=== PATIENT | male | born 1950 | race Caucasian/White ===

== ENCOUNTER → 2016-12-14 | Outpatient (CLI) | payer BC ==
[~2016-12-14] MED LIST: ASPI-587 PO; BENA10TA2 PO; BNZ40T PO; CARV12.52 PO; CARV12.53 PO; CARV25TA PO; CEFU500T PO; CHOL100011 PO; CHOL20002 PO; DIGO125T PO; FURO40TA4 PO; LOVA40TA2 PO; MULT-974 PO; PANT40TA2 PO; PNT40TEC PO; POTA-51 PO; POTA20PA11 PO; PRAS10TA6 PO; SERT100T8 PO; SPIR25TA PO
== END ==
LOC: CARD 13:02
PROVIDERS: ATTEND Physician Assistant
DX: I11.0 Hypertensive heart disease with heart failure (principal); I50.22 Chronic systolic (congestive) heart failure; I25.5 Ischemic cardiomyopathy; E78.2 Mixed hyperlipidemia
CPT/HCPCS: 93306

== ENCOUNTER → 2018-01-27 | Outpatient (CLI) | payer BC ==
[~2018-01-27] MED LIST changes: -BENA10TA2 PO; +BENA10TA7 PO
--- NOTE | 2018-01-27 15:56 | Diagnostic Imaging Report ---
INDICATION: Prostate cancer. TECHNIQUE: Patient was administered 25.8 mCi technetium 99m MDP intravenously and whole-body imaging was performed after a three-hour delay. COMPARISON: No prior bone scans are available for comparison. FINDINGS: There is normal uptake of activity by the axial and appendicular skeleton. There is uptake by both kidneys with excretion into the urinary bladder. Mild uptake involving the medial left knee is seen, likely owing to degenerative change. No suspicious foci of tracer accumulation is identified to suggest osseous metastatic disease. IMPRESSION: No scintigraphic evidence of osseous metastatic disease. Dictated by: Dictated on workstation # [id number]
== END ==
LOC: CARD 11:52
PROVIDERS: ATTEND Nurse Practitioner Family
DX: C61 Malignant neoplasm of prostate (principal)
CPT/HCPCS: 78306

== ENCOUNTER → 2018-02-07 | Outpatient (CLI) | payer BC | LOC: CARD 12:54 | PROVIDERS: ATTEND Internal Medicine Cardiovascular Disease | DX: I44.0 Atrioventricular block, first degree (principal); I50.22 Chronic systolic (congestive) heart failure; I25.10 Atherosclerotic heart disease of native coronary artery without angina pectoris; Z72.0 Tobacco use; I34.0 Nonrheumatic mitral (valve) insufficiency | CPT/HCPCS: 93306 ==

== ENCOUNTER 2018-02-28 05:39 | Outpatient (CLI) | payer BC ==
[~2018-02-28] VITALS: Ht 177.8 cm; Wt 93.4 kg
[2018-02-28] MEDS ORDERED: SERT100T8 PO (13:28)
[2018-02-28] MEDS ORDERED: CARV6.252 PO (13:28)
[2018-02-28] MEDS ORDERED: FURO40TA4 PO (13:28)
[2018-02-28] MEDS ORDERED: ROSU20TA31 PO (13:28)
[2018-02-28] MEDS ORDERED: TICA60TA PO (13:28)
[2018-02-28] MEDS ORDERED: ASPI-999 PO (13:28)
[2018-02-28] MEDS ORDERED: CHOL100045 PO (13:28)
[2018-02-28] MEDS ORDERED: SACU1TAB PO (13:28)
[2018-02-28] MEDS ORDERED: MULT-35 PO (13:28)
== END 2018-02-28 15:26 | disposition home or self-care (01) ==
LOC: PREOP 05:39
PROVIDERS: ATTEND Radiology Radiation Oncology
DX: Z01.818 Encounter for other preprocedural examination (principal)

== ENCOUNTER 2018-03-05 10:44 | Day surgery (SDC) | payer BC ==
[~2018-03-05] VITALS: Ht 177.8 cm; Wt 93.4 kg
[~2018-03-05 10:44] MED LIST changes: +ASPI-999 PO; +CARV6.252 PO; +CHOL100045 PO; +MULT-35 PO; +ROSU20TA31 PO; +SACU1TAB PO; +TICA60TA PO
--- NOTE | 2018-03-05 10:59 | Progress Note-Pre Operative ---
Pre-Operative Progress Note H&P Reviewed The H&P was reviewed, patient examined and no changes noted. Date Seen by Provider: Mar 05, 2018 Time Seen by Provider: 10:58 Date H&P Reviewed: Mar 05, 2018 Time H&P Reviewed: 10:59 Pre-Operative Diagnosis: Prostate cancer cT1c, PSA 10.07, [place] 7 (4+3) GAURAV NUNES MD Mar 05, 2018 10:59
[2018-03-05 11:00] VITALS: BP 137/86
--- NOTE | 2018-03-05 11:03 | Discharge Inst-Simple/Standard ---
Discharge Inst-Standard Discharge Medications New, Converted or Re-Newed RX: RX Given to Pt/Family Patient Instructions/Follow Up Plan of Care/Instructions/FU: 1)Follow up appointment scheduled with Dr. Allred for 04/04/18 at 10:00 a.m. 2)Follow up at [facility] for post implant scan on 04/02/18 at 1:00 p.m. Activity as Tolerated: Yes Discharge Diet: No Restrictions Other Inst to Patient Please instruct patient on anglin catheter removal - either Wednesday 03/07 or Saturday 03/10 in morning - date per Dr. Allred. GAURAV NUNES MD Mar 05, 2018 11:03
[2018-03-05] MEDS ORDERED: CIPR-226 PO (11:06)
[2018-03-05] MEDS ORDERED: ACET1TAB43 PO (11:06)
--- OUTSIDE RECORDS SUMMARY | 2018-03-05 11:07 | XMS REPORT | Continuity of Care Document ---
Author Author [facility] Organization [facility] Address Unknown Phone Unavailable Allergies Active Description Code Type Severity Reaction Onset Reported/Identified Relationship to Patient Clinical Status Yes No Known Drug Allergies [id number] Drug Allergy Unknown N/A 02/24/2010 Yes clopidogrel [id number] Drug Allergy Unknown N/A 04/13/2014 Yes PROLANTA PROLANTA Unknown N/A 04/13/2014 Yes CONTAST DYE CONTAST DYE Unknown N/A 12/15/2014 Yes ticagrelor [id number] Drug Allergy Unknown N/A 12/15/2014 Yes Iodinated Contrast Media - IV Dye [id number] Drug Allergy Unknown N/A 02/05 Yes Iodinated Contrast- Oral and IV Dye [id number] Drug Allergy Unknown N/A Yes clopidogrel [id number] Drug Allergy Mild BREATHING DIFFI 02/28/2018 Medications There is no data. Problems Date Dx Coded Attending Type Code Diagnosis Diagnosed By 02/24/2010 Ot V76.51 04/13/2014 MARTHA MCKINNEY MD Ot 211.3 BENIGN NEOPLASM LG BOWEL 04/13/2014 MARTHA MCKINNEY MD Ot 427.31 ATRIAL FIBRILLATION 04/13/2014 MARTHA MCKINNEY MD Ot 455.0 INT HEMORRHOID W/O COMPL 04/13/2014 MARTHA MCKINNEY MD Ot 535.40 OTH SPECIFIED GASTRITIS,W/O MENTION OF H 04/13/2014 MARTHA MCKINNEY MD Ot 562.10 DIVERTICULOSIS COLON (W/O MENT OF HEMORR 04/13/2014 MARTHA MCKINNEY MD Ot V16.0 FAMILY HX-GI MALIGNANCY 04/13/2014 MARTHA MCKINNEY MD Ot V45.89 POSTSURGICAL STATES NEC 04/13/2014 MARTHA MCKINNEY MD Ot V58.66 LONG-TERM (CURRENT) USE OF ASPIRIN 04/13/2014 MARTHA MCKINNEY MD Ot V76.51 SCREEN MAL NEOP-COLON 07/26/2014 JOSE RAFAEL HARRIS DO Ot 786.09 07/26/2014 MARTHA MCKINNEY MD Ot V72.84 09/03/2014 LEANNE VAZQUEZ MD Ot 305.1 09/03/2014 LEANNE VAZQUEZ MD Ot 401.9 09/03/2014 LEANNE VAZQUEZ MD Ot 410.90 09/03/2014 LEANNE VAZQUEZ MD Ot 428.0 09/24/2014 JOSE RAFAEL HARRIS DO Ot 786.09 09/24/2014 MARTHA MCKINNEY MD Ot V72.84 09/24/2014 LEANNE VAZQUEZ MD Ot 305.1 09/24/2014 LEANNE VAZQUEZ MD Ot 401.9 09/24/2014 LEANNE VAZQUEZ MD Ot 410.90 09/24/2014 LEANNE VAZQUEZ MD Ot 428.0 09/24/2014 JOSE RAFAEL HARRIS DO Ot 786.09 09/24/2014 MARTHA MCKINNEY MD Ot V72.84 09/24/2014 LEANNE VAZQUEZ MD Ot 305.1 09/24/2014 LEANNE VAZQUEZ MD Ot 401.9 09/24/2014 LEANNE VAZQUEZ MD Ot 410.90 09/24/2014 LEANNE VAQZUEZ MD Ot 428.0 10/08/2014 DELPHINE GAGE Ot 414.00 10/08/2014 DELPHINE GAGE Ot 414.8 10/08/2014 DELPHINE GAGE Ot 426.11 10/08/2014 DELPHINE GAGE Ot 428.0 10/08/2014 DELPHINE GAGE Ot V15.82 12/16/2014 LEANNE VAZQUEZ MD Ot 272.4 HYPERLIPIDEMIA NEC/NOS 12/16/2014 LEANNE VAZQUEZ MD Ot 305.1 TOBACCO USE DISORDER 12/16/2014 LEANNE VAZQUEZ MD Ot 401.9 HYPERTENSION NOS 12/16/2014 LEANNE VAZQUEZ MD Ot 412 OLD MYOCARDIAL INFARCT 12/16/2014 LEANNE VAZQUEZ MD Ot 414.01 CORONARY ATHEROSCLEROSIS OF [place] CORON 12/16/2014 LEANNE VAZQUEZ MD Ot 414.8 CHR ISCHEMIC HRT DIS NEC 12/16/2014 LEANNE VAZQUEZ MD Ot 428.0 CONGESTIVE HEART FAILURE NOS 12/16/2014 LEANNE VAZQUEZ MD Ot 428.22 CHRONIC SYSTOLIC HRT FAILURE 12/16/2014 LEANNE VAZQUEZ MD Ot 530.81 ESOPHAGEAL REFLUX 12/16/2014 LEANNE VAZQUEZ MD Ot V45.82 PERCUTANEOUS TRANSLUM CORON ANGIOPLASTY 12/16/2014 LEANNE VAZQUEZ MD Ot V58.69 OT MED,LT,CURRENT USE 12/16/2014 LEANNE VAZQUEZ MD Ot 305.1 12/16/2014 LEANNE VAZQUEZ MD Ot 401.9 12/16/2014 LEANNE VAZQUEZ MD Ot 414.00 12/16/2014 LEANNE VAZQUEZ MD Ot 428.0 10/19/2015 LEANNE VAZQUEZ MD Ot I10 ESSENTIAL (PRIMARY) HYPERTENSION 10/19/2015 LEANNE VAZQUEZ MD Ot I25.10 ATHSCL HEART DISEASE OF [place] CORONARY 10/19/2015 LEANNE VAZQUEZ MD Ot I25.5 ISCHEMIC CARDIOMYOPATHY 10/19/2015 LEANNE VAZQUEZ MD Ot I44.0 ATRIOVENTRICULAR BLOCK, FIRST DEGREE 10/21/2015 LEANNE VAZQUEZ MD Ot I10 ESSENTIAL (PRIMARY) HYPERTENSION 10/21/2015 LEANNE VAZQUEZ MD Ot I25.10 ATHSCL HEART DISEASE OF [place] CORONARY 10/21/2015 LEANNE VAZQUEZ MD Ot I25.5 ISCHEMIC CARDIOMYOPATHY 10/21/2015 LEANNE VAZQUEZ MD Ot I44.0 ATRIOVENTRICULAR BLOCK, FIRST DEGREE 11/07/2015 LEANNE VAZUQEZ MD Ot I10 ESSENTIAL (PRIMARY) HYPERTENSION 11/07/2015 LEANNE VAZQUEZ MD Ot I25.10 ATHSCL HEART DISEASE OF [place] CORONARY 11/07/2015 LEANNE VAZQUEZ MD Ot I25.5 ISCHEMIC CARDIOMYOPATHY 11/07/2015 LEANNE VAZQUEZ MD Ot I44.0 ATRIOVENTRICULAR BLOCK, FIRST DEGREE 01/27/2016 JOSE RAFAEL HARRIS DO Ot 786.09 RESPIRATORY ABNORM NEC 01/27/2016 FAYE RINALDI, MARTHA Enriquez Ot V72.84 EXAM PRE-OPERATIVE NOS 01/27/2016 LEANNE VAZQUEZ MD Ot 305.1 TOBACCO USE DISORDER 01/27/2016 LEANNE VAZQUEZ MD Ot 401.9 HYPERTENSION NOS 01/27/2016 LEANNE VAZQUEZ MD Ot 410.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,UNSPEC SITE, EPIS 01/27/2016 LEANNE VAZQUEZ MD Ot 428.0 CONGESTIVE HEART FAILURE NOS 01/27/2016 DELPHINE GAGE Ot 414.00 CORON ATHEROSCLER NOS TYPE VESSEL, NATIV 01/27/2016 DELPHINE AGGE Ot 414.8 CHR ISCHEMIC HRT DIS NEC 01/27/2016 DELPHINE GAGE Ot 426.11 ATRIOVENT BLOCK-1ST DEGR 01/27/2016 DELPHINE GAGE Ot 428.0 CONGESTIVE HEART FAILURE NOS 01/27/2016 DELPHINE GAGE Ot V15.82 HISTORY OF TOBACCO USE 01/27/2016 LEANNE VAZQUEZ MD Ot 305.1 TOBACCO USE DISORDER 01/27/2016 LEANNE VAZQUEZ MD Ot 401.9 HYPERTENSION NOS 01/27/2016 LEANNE VAZQUEZ MD Ot 414.00 CORON ATHEROSCLER NOS TYPE VESSEL, NATIV 01/27/2016 LEANNE VAZQUEZ MD Ot 428.0 CONGESTIVE HEART FAILURE NOS 01/27/2016 LEANNE VAZQUEZ MD Ot I10 ESSENTIAL (PRIMARY) HYPERTENSION 01/27/2016 LEANNE VAZQUEZ MD Ot I25.10 ATHSCL HEART DISEASE OF [place] CORONARY 01/27/2016 LEANNE VAZQUEZ MD Ot I25.5 ISCHEMIC CARDIOMYOPATHY 01/27/2016 LEANNE VAZQUEZ MD Ot I44.0 ATRIOVENTRICULAR BLOCK, FIRST DEGREE 02/07/2016 LEANNE VAZQUEZ MD Ot I10 ESSENTIAL (PRIMARY) HYPERTENSION 02/07/2016 LEANNE VAZQUZE MD Ot I25.10 ATHSCL HEART DISEASE OF [place] CORONARY 02/07/2016 LEANNE VAZQUEZ MD Ot I25.5 ISCHEMIC CARDIOMYOPATHY 02/07/2016 LEANNE VAZQUEZ MD Ot I50.22 CHRONIC SYSTOLIC (CONGESTIVE) HEART FAIL 02/07/2016 LEANNE VAZQUEZ MD Ot Z72.0 TOBACCO USE 02/08/2016 LEANNE VAZQUEZ MD Ot I10 ESSENTIAL (PRIMARY) HYPERTENSION 02/08/2016 LEANNE VAZQUEZ MD Ot I25.10 ATHSCL HEART DISEASE OF [place] CORONARY 02/08/2016 LEANNE VAZQUEZ MD Ot I25.5 ISCHEMIC CARDIOMYOPATHY 02/08/2016 LEANNE VAZQUEZ MD Ot I50.22 CHRONIC SYSTOLIC (CONGESTIVE) HEART FAIL 02/08/2016 LEANNE VAZQUEZ MD Ot Z72.0 TOBACCO USE 04/06/2016 DELPHINE GAGE Ot I25.10 ATHSCL HEART DISEASE OF [place] CORONARY 04/06/2016 DELPHINE GAGE Ot I50.22 CHRONIC SYSTOLIC (CONGESTIVE) HEART FAIL 04/19/2016 DELPHINE GAGE Ot I25.10 ATHSCL HEART DISEASE OF [place] CORONARY 04/19/2016 DELPHINE GAGE Ot I50.22 CHRONIC SYSTOLIC (CONGESTIVE) HEART FAIL 12/07/2016 JOSE RAFAEL HARRIS DO Ot 786.09 RESPIRATORY ABNORM NEC 12/07/2016 FAYE RINALDI, MARTHA Enriquez Ot V72.84 EXAM PRE-OPERATIVE NOS 12/07/2016 LEANNE VAZQUEZ MD Ot 305.1 TOBACCO USE DISORDER 12/07/2016 LEANNE VAZQUEZ MD Ot 401.9 HYPERTENSION NOS 12/07/2016 LEANNE VAZQUEZ MD Ot 410.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,UNSPEC SITE, EPIS 12/07/2016 LEANNE VAZQUEZ MD Ot 428.0 CONGESTIVE HEART FAILURE NOS 12/07/2016 DELPHINE GAGE Ot 414.00 CORON ATHEROSCLER NOS TYPE VESSEL, NATIV 12/07/2016 DELPHINE GAGE Ot 414.8 CHR ISCHEMIC HRT DIS NEC 12/07/2016 DELPHINE GAGE Ot 426.11 ATRIOVENT BLOCK-1ST DEGR 12/07/2016 DELPHINE GAGE Ot 428.0 CONGESTIVE HEART FAILURE NOS 12/07/2016 DELPHINE GAGE Ot V15.82 HISTORY OF TOBACCO USE 12/07/2016 LEANNE VAZQUEZ MD Ot 305.1 TOBACCO USE DISORDER 12/07/2016 LEANNE VAZQUEZ MD Ot 401.9 HYPERTENSION NOS 12/07/2016 LEANNE VAZQUEZ MD Ot 414.00 CORON ATHEROSCLER NOS TYPE VESSEL, NATIV 12/07/2016 LEANNE VAZQUEZ MD Ot 428.0 CONGESTIVE HEART FAILURE NOS 12/07/2016 LEANNE VAZQUEZ MD Ot I10 ESSENTIAL (PRIMARY) HYPERTENSION 12/07/2016 LEANNE VAZQUEZ MD Ot I25.10 ATHSCL HEART DISEASE OF [place] CORONARY 12/07/2016 LEANNE VAZQUEZ MD Ot I25.5 ISCHEMIC CARDIOMYOPATHY 12/07/2016 LEANNE VAZQUEZ MD Ot I44.0 ATRIOVENTRICULAR BLOCK, FIRST DEGREE 12/07/2016 LEANNE VAZQUEZ MD Ot I10 ESSENTIAL (PRIMARY) HYPERTENSION 12/07/2016 LEANNE VAZQUEZ MD Ot I25.10 ATHSCL HEART DISEASE OF [place] CORONARY 12/07/2016 LEANNE VAZQUEZ MD Ot I25.5 ISCHEMIC CARDIOMYOPATHY 12/07/2016 LEANNE VAZQUEZ MD Ot I50.22 CHRONIC SYSTOLIC (CONGESTIVE) HEART FAIL 12/07/2016 LEANNE VAZQUEZ MD Ot Z72.0 TOBACCO USE 12/07/2016 DELPHINE GAGE Ot I25.10 ATHSCL HEART DISEASE OF [place] CORONARY 12/07/2016 DELPHINE GAGE Ot I50.22 CHRONIC SYSTOLIC (CONGESTIVE) HEART FAIL 12/26/2016 DELPHINE GAGE Ot E78.2 MIXED HYPERLIPIDEMIA 12/26/2016 DELPHINE GAGE Ot I11.0 HYPERTENSIVE HEART DISEASE WITH HEART FA 12/26/2016 DELPHINE GAGE Ot I25.5 ISCHEMIC CARDIOMYOPATHY 12/26/2016 DELPHINE GAGE Ot I50.22 CHRONIC SYSTOLIC (CONGESTIVE) HEART FAIL 01/14/2018 JOSE RAFAEL HARRIS DO Ot 786.09 RESPIRATORY ABNORM NEC 01/14/2018 FAYE RINALDI, MARTHA Enriquez Ot V72.84 EXAM PRE-OPERATIVE NOS 01/14/2018 LEANNE VAZQUEZ MD Ot 305.1 TOBACCO USE DISORDER 01/14/2018 LEANNE VAZQUEZ MD Ot 401.9 HYPERTENSION NOS 01/14/2018 LEANNE VAZQUEZ MD Ot 410.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,UNSPEC SITE, EPIS 01/14/2018 LEANNE VAZQUEZ MD Ot 428.0 CONGESTIVE HEART FAILURE NOS 01/14/2018 DELPHINE GAGE Ot 414.00 CORON ATHEROSCLER NOS TYPE VESSEL, NATIV 01/14/2018 DELPHINE GAGE Ot 414.8 CHR ISCHEMIC HRT DIS NEC 01/14/2018 DELPHINE GAGE Ot 426.11 ATRIOVENT BLOCK-1ST DEGR 01/14/2018 DELPHINE GAGE Ot 428.0 CONGESTIVE HEART FAILURE NOS 01/14/2018 DELPHINE GAGE Ot V15.82 HISTORY OF TOBACCO USE 01/14/2018 LEANNE VAZQUEZ MD Ot 305.1 TOBACCO USE DISORDER 01/14/2018 LEANNE VAZQUEZ MD Ot 401.9 HYPERTENSION NOS 01/14/2018 LEANNE VAZQUEZ MD Ot 414.00 CORON ATHEROSCLER NOS TYPE VESSEL, NATIV 01/14/2018 LEANNE VAZQUEZ MD Ot 428.0 CONGESTIVE HEART FAILURE NOS 01/14/2018 LEANNE VAZQUEZ MD Ot I10 ESSENTIAL (PRIMARY) HYPERTENSION 01/14/2018 LEANNE VAZQUEZ MD Ot I25.10 ATHSCL HEART DISEASE OF [place] CORONARY 01/14/2018 LEANNE VAZQUEZ MD Ot I25.5 ISCHEMIC CARDIOMYOPATHY 01/14/2018 LEANNE VAZQUEZ MD Ot I44.0 ATRIOVENTRICULAR BLOCK, FIRST DEGREE 01/14/2018 LEANNE VAZQUEZ MD Ot I10 ESSENTIAL (PRIMARY) HYPERTENSION 01/14/2018 LEANNE VAZQUEZ MD Ot I25.10 ATHSCL HEART DISEASE OF [place] CORONARY 01/14/2018 LEANNE VAZQUEZ MD Ot I25.5 ISCHEMIC CARDIOMYOPATHY 01/14/2018 LEANNE VAZQUEZ MD Ot I50.22 CHRONIC SYSTOLIC (CONGESTIVE) HEART FAIL 01/14/2018 LEANNE VAZQUEZ MD Ot Z72.0 TOBACCO USE 01/14/2018 DELPHINE GAGE Ot I25.10 ATHSCL HEART DISEASE OF [place] CORONARY 01/14/2018 DELPHINE GAGE Ot I50.22 CHRONIC SYSTOLIC (CONGESTIVE) HEART FAIL 01/14/2018 DELPHINE GAGE Ot E78.2 MIXED HYPERLIPIDEMIA 01/14/2018 DELPHINE GAGE Ot I11.0 HYPERTENSIVE HEART DISEASE WITH HEART FA 01/14/2018 DELPHINE GAGE Ot I25.5 ISCHEMIC CARDIOMYOPATHY 01/14/2018 DELPHINE GAGE Ot I50.22 CHRONIC SYSTOLIC (CONGESTIVE) HEART FAIL 01/30/2018 SHAYLA LU, BRANNON YEPEZ Ot C61 MALIGNANT NEOPLASM OF PROSTATE 02/12/2018 SHAYLA LU, BRANNON YEPEZ Ot C61 MALIGNANT NEOPLASM OF PROSTATE 02/21/2018 LEANNE VAZQUEZ MD Ot I25.10 ATHSCL HEART DISEASE OF [place] CORONARY 02/21/2018 LEANNE VAZQUEZ MD Ot I34.0 NONRHEUMATIC MITRAL (VALVE) INSUFFICIENC 02/21/2018 LEANNE VAZQUEZ MD Ot I44.0 ATRIOVENTRICULAR BLOCK, FIRST DEGREE 02/21/2018 LEANNE VAZQUEZ MD Ot I50.22 CHRONIC SYSTOLIC (CONGESTIVE) HEART FAIL 02/21/2018 LEANNE VAZQUEZ MD Ot Z72.0 TOBACCO USE 03/03/2018 GAURAV NUNES MD Ot Z01.818 ENCOUNTER FOR OTHER PREPROCEDURAL EXAMIN Procedures There is no data. Results There is no data. Encounters ACCT No. Visit Date/Time Discharge Status Pt. Type Provider Facility Loc./Unit Complaint [id number] 02/28/2018 05:39:00 02/28/2018 15:26:00 DIS Outpatient GAURAV NUNES MD [facility] PREOP PROSTATE CANCER [id number] 02/07/2018 12:54:00 02/07/2018 23:59:59 CLS Outpatient LEANNE VAZQUEZ MD [facility] CARD 1ST DEGREE AV BLOCK,CHF [id number] 01/27/2018 11:52:00 01/27/2018 23:59:59 CLS Outpatient SHAYLA LU, BRANNON YEPEZ [facility] CARD PROSTATE CANCER C61 [id number] 01/14/2018 14:09:00 01/14/2018 23:59:59 CLS Outpatient GAURAV NUNES MD [facility] ONC [id number] 12/14/2016 13:02:00 12/14/2016 23:59:59 CLS Outpatient DELPHINE GAGE [facility] CARD CHF I50.22, HTN I10 [id number] 04/05/2016 12:00:00 04/05/2016 23:59:59 CLS Outpatient DELPHINE GAGE [facility] CARD CHF, CORONARY ARTERIOSCLEROSIS [id number] 02/06/2016 08:30:00 02/06/2016 23:59:59 CLS Outpatient LEANNE VAZQUEZ MD [facility] CARD CHF,HTN [id number] 10/18/2015 09:43:00 10/18/2015 23:59:59 CLS Outpatient LEANNE VAZQUEZ MD [facility] CARD AV BLOCK,HTN [id number] 12/15/2014 07:06:00 12/16/2014 14:15:00 DIS Outpatient LEANNE VAZQUEZ MD [facility] CHF, CAD HTN ICM [id number] 11/29/2014 11:00:00 11/29/2014 23:59:59 CLS Outpatient LEANNE VAZQUEZ MD [facility] CAD CHF HTN [id number] 09/24/2014 10:40:00 09/24/2014 23:59:59 CLS Outpatient DELPHINE GAGE [facility] CARD FIRST DEGREE AV BLOCK,CAD, [id number] 07/27/2014 09:38:00 07/27/2014 23:59:59 CLS Outpatient LEANNE VAZQUEZ MD [facility] CHF,HTN [id number] 04/13/2014 08:10:00 04/13/2014 11:18:00 DIS Outpatient MARTHA MCKINNEY MD [facility] RIGHT UPPER QUADRANT ABD PAIN [id number] 04/06/2014 10:13:00 04/06/2014 23:59:59 CLS Outpatient MARTHA MCKINNEY MD [facility] PREOP RIGHT UPPER QUADRANT ABD PAIN [id number] 02/03/2014 12:14:00 02/03/2014 23:59:59 CLS Outpatient JOSE RAFAEL HARRIS DO [facility] RAD DYSPNEA [id number] 03/05/2018 10:44:00 ACT Outpatient GAURAV NUNES MD [facility] PROSTATE CANCER [id number] 07/26/2014 11:58:00 Document Registration [id number] 11/29/2014 11:05:34 ACT Document Registration
[2018-03-05] MEDS ORDERED: LIDOCAINE PF 2% 5 ML (XYLOCAINE) VIAL ONE (11:34)
[2018-03-05] MEDS ORDERED: fentaNYL INJECTION 100 MCG/2 ML AMP ONE (11:34)
[2018-03-05] MEDS ORDERED: proPOfol 200 MG/20 ML (DIPRIVAN) VIAL IV ONE (11:34)
[2018-03-05] MEDS ORDERED: ONDANSETRON 4 MG/2 ML (SDV) Z0FRAN ONE (11:34)
[2018-03-05] MEDS ORDERED: MIDAZOLAM 2 MG/2 ML (VERSED) VIAL ONE (11:34)
[2018-03-05] MEDS ORDERED: DEXAMETHASONE 10 MG/ML (DECADRON) 1 ML VIAL ONE (11:35)
[2018-03-05] MEDS ORDERED: SEVOFLURANE (ULTANE) 15 ML INHAL SOLN ONE ×6 (11:39→13:26)
[2018-03-05] MEDS ORDERED: LEVOFLOXACIN 500 MG/100 ML IV 100 ML IV ONE (11:45)
[2018-03-05] MEDS ORDERED: ROCURONIUM 10 MG/ML 5 ML SYRINGE IV ONE (11:52)
[2018-03-05] MEDS: LACTATED RINGERS 1,000 ML IV PRN ×2 (12:00→13:00)
[2018-03-05] MEDS ORDERED: GLYCOPYRROLATE 0.2 MG/ML (ROBINUL) 2 ML VIAL ONE (13:10)
[2018-03-05] MEDS ORDERED: MEPERIDINE (DEMEROL) INJ 50 MG/ML IVP ONE (13:45)
[2018-03-05] MEDS ORDERED: ONDANSETRON 4 MG/2 ML (SDV) Z0FRAN IVP PRN (13:45)
[2018-03-05] MEDS ORDERED: morphine INJ 10 MG/ML 1ML (SYR OR VIAL) IVP ONE (13:45)
--- NOTE | 2018-03-05 13:54 | Progress Note-Post Operative ---
Post-Operative Progess Note Surgeon (s)/Health Club Manager (s) Surgeon GAURAV NUNES MD Health Club Manager: Shannan RECIO MD Pre-Operative Diagnosis Prostate cancer cT1c, PSA 10.07, [place] 7 (4+3) Post-Operative Diagnosis Same as pre-op Procedure & Operative Findings Date of Procedure 03/05/18 Procedure Performed/Findings 1) 100% Cesium 131 permanent prostate seed implant with cystogram 2) Injection of biodegradable hydrogel prostate-rectal spacer utilizing the SpaceOAR system Prostate volume 38 cc Anesthesia Type General Estimated Blood Loss Estimated blood loss (mL): Minimal Specimens/Packing Specimens Removed None Packing: N/A GAURAV NUNES MD Mar 05, 2018 13:54
[2018-03-05 14:25] VITALS: BP 120/74
[2018-03-05 14:55] VITALS: BP 125/83
[2018-03-05 15:25] VITALS: BP 121/71
[2018-03-05 16:05] VITALS: BP 121/71
--- NOTE | 2018-03-05 21:09 | Diagnostic Imaging Report ---
INDICATION: Prostate cancer. TECHNIQUE: Single intraprocedural images prostate bed CORRELATION STUDY: None FINDINGS: Fluoroscopy over the of the lower midline pelvis demonstrates small amount of contrast within the urinary bladder with apparent Montalvo catheter in place. Multiple radiation seed implants are present. There is noted a linear density superimposed over the right lateral aspect of the bladder base. Margins of the contrast opacified bladder are slightly irregular. Fluoroscopy time: 11 seconds IMPRESSION: 1. Fluoroscopy utilized for brachytherapy at the level of the prostate bed. Dictated by: Dictated on workstation # [id number]
== END 2018-03-05 16:05 | disposition home or self-care (01) ==
LOC: SDC 10:44
PROVIDERS: ATTEND Radiology Radiation Oncology
DX: C61 Malignant neoplasm of prostate (principal); Z11.2 Encounter for screening for other bacterial diseases; I10 Essential (primary) hypertension; E78.00 Pure hypercholesterolemia, unspecified; K21.9 Gastro-esophageal reflux disease without esophagitis; I25.2 Old myocardial infarction; Z95.810 Presence of automatic (implantable) cardiac defibrillator; Z95.5 Presence of coronary angioplasty implant and graft; Z80.0 Family history of malignant neoplasm of digestive organs; Z80.42 Family history of malignant neoplasm of prostate; F17.220 Nicotine dependence, chewing tobacco, uncomplicated; Z79.82 Long term (current) use of aspirin; Z79.899 Other long term (current) drug therapy; I25.10 Atherosclerotic heart disease of native coronary artery without angina pectoris; E78.5 Hyperlipidemia, unspecified; I50.9 Heart failure, unspecified; I42.9 Cardiomyopathy, unspecified; E66.9 Obesity, unspecified; Z68.30 Body mass index [BMI] 30.0-30.9, adult
CPT/HCPCS: 76965; 77290; 77318; 77332; 77370; 77470; 77778; 87081

== ENCOUNTER 2018-04-02 13:21 | Outpatient (RCR) | payer BC ==
[~2018-04-02 13:21] MED LIST changes: +ACET1TAB43 PO; +CIPR-226 PO
== END 2018-04-14 | disposition home or self-care (01) ==
LOC: ONC 13:21
PROVIDERS: ATTEND Radiology Radiation Oncology
DX: Z51.0 Encounter for antineoplastic radiation therapy (principal); C61 Malignant neoplasm of prostate
CPT/HCPCS: 76873; 77290; 77331; 99205

== ENCOUNTER 2018-04-24 09:45 | Outpatient (RCR) | payer BC | END 2018-07-23 | disposition home or self-care (01) | LOC: ONC 09:45 | PROVIDERS: ATTEND Radiology Radiation Oncology | DX: C61 Malignant neoplasm of prostate (principal) | CPT/HCPCS: 77295; 77336 ==

== ENCOUNTER → 2019-02-09 | Outpatient (CLI) | payer BC ==
[~2019-02-09] VITALS: Ht 178 cm; Wt 93.0 kg
[~2019-02-09] MED LIST changes: -BENA10TA7 PO; +BENA10TA9 PO; +REGADENOSON 0.4 MG/5 ML SYR (LEXISCAN) IV ONE; -ROSU20TA31 PO; +ROSU20TA32 PO
[2019-02-09] MEDS: CATHETER FLUSH 10 ML SYR IV PRN ×2 (08:15→09:26)
[2019-02-09 09:25] VITALS: BP 136/85
--- NOTE | 2019-02-09 12:56 | STRESS TEST ---
DATE OF SERVICE: 02/09/2019 LEXISCAN MYOVIEW STRESS TEST REPORT REFERRING PHYSICIAN: Dr. Zapien. Baseline heart rate is 61, baseline blood pressure 136/85. Baseline EKG is sinus rhythm with no ischemic changes. In summary, the patient was injected with 10.72 mCi of technetium-99 Myoview and the resting images were obtained. Then, the patient received 0.4 mg of Lexiscan followed by 30.8 mCi of technetium-99 Myoview. Throughout the test, there were no EKG changes. The resting and stress images were reviewed and compared in the short axis, horizontal long axis, and vertical long axis views. Review of the images showed fix defect involving the mid to apical anterior wall, true apex and inferoapical segment and inferior wall with no significant reversibility. SSS is 45. SDS is 0. TID value 1.08. On the gated images, the left ventricle is dilated with dyskinesia of the apex, hypokinesia at the anteroapical segment and inferoapical segment. Calculated ejection fraction 32%. CONCLUSION: 1. The patient tolerated Lexiscan well. 2. Total infarction of the mid to apical anterior wall, true apex and inferoapical segment and inferior wall with no significant reversibility. 3. Dilated left ventricle with dyskinesia of the apex, hypokinesia at the anterior wall and inferior wall. Calculated ejection fraction 32%. Job ID: [id number] DocumentID: [id number] Dictated Date: 02/09/2019 11:27:29 Export Freight Clerk Date: 02/09/2019 12:55:45 Dictated By: LEANNE VAZQUEZ MD
== END ==
LOC: CARD 08:02
PROVIDERS: ATTEND Physician Assistant
DX: I51.7 Cardiomegaly (principal); I25.2 Old myocardial infarction; I51.89 Other ill-defined heart diseases; I11.0 Hypertensive heart disease with heart failure; I50.22 Chronic systolic (congestive) heart failure; E78.2 Mixed hyperlipidemia; Z82.49 Family history of ischemic heart disease and other diseases of the circulatory system
CPT/HCPCS: 78452; 93017

== ENCOUNTER → 2019-09-11 | Outpatient (CLI) | payer BC, MEDICARE ==
[~2019-09-11] MED LIST changes: +BENA10TA66 PO; -BENA10TA9 PO; -DIGO125T PO; +DIGO125T3 PO; -REGADENOSON 0.4 MG/5 ML SYR (LEXISCAN) IV ONE; -SACU1TAB PO; +SACU1TAB2 PO
== END ==
LOC: CARD 11:14
PROVIDERS: ATTEND Internal Medicine Cardiovascular Disease
DX: I50.9 Heart failure, unspecified (principal); I25.10 Atherosclerotic heart disease of native coronary artery without angina pectoris; I11.0 Hypertensive heart disease with heart failure; I51.7 Cardiomegaly
CPT/HCPCS: 93306

== ENCOUNTER → 2020-10-14 | Outpatient (CLI) | payer MEDICARE ==
[~2020-10-14] MED LIST changes: +SERT-414 PO
== END ==
LOC: CARD 13:30
PROVIDERS: ATTEND Internal Medicine Cardiovascular Disease
DX: I11.9 Hypertensive heart disease without heart failure (principal); I25.10 Atherosclerotic heart disease of native coronary artery without angina pectoris
CPT/HCPCS: 93306

== ENCOUNTER → 2021-11-29 | Outpatient (CLI) | payer MEDICARE ==
[~2021-11-29] MED LIST changes: +ACET-11 PO; -ACET1TAB43 PO
== END ==
LOC: CARD 10:55
PROVIDERS: ATTEND Physician Assistant
DX: I10 Essential (primary) hypertension (principal); I25.10 Atherosclerotic heart disease of native coronary artery without angina pectoris; I35.0 Nonrheumatic aortic (valve) stenosis
CPT/HCPCS: 93306

== ENCOUNTER → 2022-05-30 | Outpatient (CLI) | payer MEDICARE ==
[~2022-05-30] VITALS: Ht 180 cm; Wt 81.0 kg
[~2022-05-30] MED LIST changes: +CATHETER FLUSH 10 ML SYR IVP PRN; +REGADENOSON 0.4 MG/5 ML SYR (LEXISCAN) IV ONE
[2022-05-30 13:22] VITALS: BP 122/80
--- NOTE | 2022-05-30 16:48 | Cardiology Stress Test Report ---
Stress Test Report Date of Procedure/Referring: Date of Procedure: May 30, 2022 PCP Jose Rafael Zapien DO Admitting Physician Admitting Physician: Attending Physician: Ceci Loera MD Indications: CAD Baseline Heart Rate: 50 Baseline Blood Pressure: Blood Pressure Systolic: 122 Blood Pressure Diastolic: 80 Baseline Vitals Vital Signs Date Time Temp Pulse Resp B/P (MAP) Pulse Ox O2 Delivery O2 Flow Rate FiO2 05/30/22 13:22 50 122/80 (94) 98 Baseline EKG: Baseline EKG: NSR Summary After explaining the procedure to the patient, he signed a consent and then brought to the stress nuclear laboratory. Patient received 0.4 mg Lexiscan for stress test, ECG, heart rate and blood pressure were monitored continuously. Resting and stress dose of radio tracer were injected, imaging was acquired and reviewed in short axis, horizontal long axis and vertical long axis views. TID: 1.05 SSS: 52 SDS: 0 EF: 30 Patient tolerated Lexiscan well Fixed defect involving the whole anterior wall anterior apex and inferior apex and anterior septum, no reversibility Dilated left ventricle with diffuse left ventricular hypokinesia, akinesia of the anterior wall dyskinesia of the apex, EF 30% Copy Copies To 1: JOSE RAFAEL ZAPIEN BASHAR J MD May 30, 2022 16:47
== END ==
LOC: CARD 11:14
PROVIDERS: ATTEND Internal Medicine Cardiovascular Disease
DX: I25.10 Atherosclerotic heart disease of native coronary artery without angina pectoris (principal); I10 Essential (primary) hypertension
CPT/HCPCS: 78452; 93017; A9502

== ENCOUNTER → 2022-12-28 | Outpatient (CLI) | payer MEDICARE ==
[~2022-12-28] MED LIST changes: -CATHETER FLUSH 10 ML SYR IVP PRN; +POTA-330 PO; -POTA-51 PO; -REGADENOSON 0.4 MG/5 ML SYR (LEXISCAN) IV ONE; -ROSU20TA32 PO; +ROSU20TA73 PO
== END ==
LOC: CARD 11:22
PROVIDERS: ATTEND Internal Medicine Cardiovascular Disease
DX: I35.1 Nonrheumatic aortic (valve) insufficiency (principal); I10 Essential (primary) hypertension; I25.10 Atherosclerotic heart disease of native coronary artery without angina pectoris
CPT/HCPCS: 93306